=== PATIENT | female | born 1955 | race Caucasian/White ===

== ENCOUNTER 2019-06-24 19:45 | Emergency (ER) | payer MEDICARE, BC ==
[~2019-06-24] VITALS: Ht 170.2 cm; Wt 72.7 kg
--- NOTE | 2019-06-24 20:02 | NUR ---
RELIEVING RN FOR BREAK, PT IS BACK FROM CT Addendum: 06/24/19 at 2010 by JERROD PT IS GOING TO CT
[2019-06-24 20:52] VITALS: BP 156/89
[2019-06-24 21:05] LABS: PARTIAL THROMBOPLASTIN TIME 39 SECONDS (22-32)
== END 2019-06-24 21:19 | disposition home or self-care (01) ==
LOC: ER 19:47
DX: S02.2XXA Fracture of nasal bones, initial encounter for closed fracture (principal); S00.83XA Contusion of other part of head, initial encounter; I48.91 Unspecified atrial fibrillation; R06.02 Shortness of breath; W18.39XA Other fall on same level, initial encounter; Y93.89 Activity, other specified; Y92.89 Other specified places as the place of occurrence of the external cause; Y99.8 Other external cause status
CPT/HCPCS: 36415; 70450; 70486; 72125; 85610; 85730; 93005; 99284

== ENCOUNTER 2023-02-07 14:36 | Outpatient (CLI) | payer MEDICARE, BC ==
[~2023-02-07 14:36] MED LIST: ALLO300T8 PO; APIX5TAB3 PO; CHOL50004 PO; CYAN-34 PO; DOCU100C40 PO; LEVO112T5 PO; LOSA1TAB36 PO; OMEP40CA21 PO; SIMV-45 PO
[2023-02-07 15:39] LABS: BASOPHILS # (AUTO) 0.1 X10'3 (0-0.2); BASOPHILS % (AUTO) 0.9 % (0-1); EOSINOPHILS # (AUTO) 0.2 X10'3 (0-0.9); HEMATOCRIT 37.7 % (35.0-45.0); HEMOGLOBIN 12.7 g/dl (12.0-16.0); LYMPHOCYTES # (AUTO) 2.5 X10'3 (1.1-4.8); LYMPHOCYTES % (AUTO) 32.2 % (21-51); MEAN CORPUSCULAR HEMOGLOBIN 33.7 PG (27.0-31.0); MEAN CORPUSCULAR HGB CONC 33.8 g/dL (33.0-36.5); MEAN CORPUSCULAR VOLUME 99.8 FL (78-98); MEAN PLATELET VOLUME 8.8 FL (7.4-10.4); MONOCYTES # (AUTO) 0.5 X10'3 (0-0.9); MONOCYTES % (AUTO) 6.8 % (2-12); NEUTROPHILS # (AUTO) 4.5 X10'3 (1.8-7.7); NEUTROPHILS % (AUTO) 58.1 % (42-75); PLATELET COUNT 197 X10'3 (140-440); RED BLOOD COUNT 3.78 X10'6 (4.20-5.60); RED CELL DISTRIBUTION WIDTH 14.3 % (11.5-14.5); WHITE BLOOD COUNT 7.7 X10'3 (4.5-11.0)
[2023-02-07 15:46] LABS: PROTHROMBIN TIME 54.6 SECONDS (9.0-12.0)
[2023-02-07 15:58] LABS: INR 5.7 INR
== END 2023-02-07 23:59 | disposition home or self-care (01) ==
LOC: LAB SPEC 14:36
PROVIDERS: ATTEND Physician Assistant Medical
DX: I48.20 Chronic atrial fibrillation, unspecified (principal); R19.00 Intra-abdominal and pelvic swelling, mass and lump, unspecified site; R23.3 Spontaneous ecchymoses
CPT/HCPCS: 36415; 85025; 85610

== ENCOUNTER 2024-11-16 09:51 | Day surgery (SDC) | payer MEDICARE, BC ==
[2024-11-12 11:06] LABS: BASOPHILS # (AUTO) 0.1 X10'3 (0-0.2); BASOPHILS % (AUTO) 1.1 % (0-1); EOSINOPHILS # (AUTO) 0.1 X10'3 (0-0.9); HEMATOCRIT 36.3 % (35.0-45.0); HEMOGLOBIN 12.2 g/dl (12.0-16.0); LYMPHOCYTES # (AUTO) 2.7 X10'3 (1.1-4.8); LYMPHOCYTES % (AUTO) 39.9 % (21-51); MEAN CORPUSCULAR HEMOGLOBIN 33.1 PG (27.0-31.0); MEAN CORPUSCULAR HGB CONC 33.6 g/dL (33.0-36.5); MEAN CORPUSCULAR VOLUME 98.8 FL (78-98); MEAN PLATELET VOLUME 8.8 FL (7.4-10.4); MONOCYTES # (AUTO) 0.5 X10'3 (0-0.9); MONOCYTES % (AUTO) 7.8 % (2-12); NEUTROPHILS # (AUTO) 3.3 X10'3 (1.8-7.7); NEUTROPHILS % (AUTO) 49.2 % (42-75); PLATELET COUNT 232 X10'3 (140-440); RED BLOOD COUNT 3.68 X10'6 (4.20-5.60); RED CELL DISTRIBUTION WIDTH 13.2 % (11.5-14.5); WHITE BLOOD COUNT 6.7 X10'3 (4.5-11.0)
[2024-11-12 11:19] LABS: APTT 40 SECONDS (22-32); PROTHROMBIN TIME 27.4 SECONDS (9.0-12.0)
[2024-11-12 11:22] LABS: ALBUMIN 3.9 G/DL (3.4-5.0); ANION GAP 7 (8-16); BLOOD UREA NITROGEN 13 MG/DL (7-18); BUN/CREATININE RATIO 13.1 (10.0-20.0); CHLORIDE 106 MMOL/L (99-107); CHOL/HDL RATIO 3.3 (0.00-4.99); CHOLESTEROL 175 MG/DL (0-200); CREATININE 0.99 MG/DL (0.40-0.90); GLUCOSE 108 MG/DL (70-104); HDL CHOLESTEROL 53 MG/DL (35-60); LDL CHOLESTEROL 95 MG/DL (50-100); POTASSIUM 4.5 MMOL/L (3.5-5.1); SODIUM 140 MMOL/L (135-145); TOTAL CARBON DIOXIDE 27.5 MMOL/L (24-32); TRIGLYCERIDES 199 MG/DL (20-135); eGFR 55 ML/MIN
[~2024-11-16] VITALS: Ht 167.6 cm; Wt 78.2 kg
[2024-11-16] VITALS (7 sets, daily range): BP systolic 103–118; BP diastolic 64–76; PULSE 54–65; RESP 12–16; TEMP 98.2; O2SAT 95–100
--- NOTE | 2024-11-16 10:26 | ELECTROCARDIOGRAPH REPORT ---
[facility] Test Date: 2024-11-16 Test Time: 10:18:43 Pat Name: MAURY GURROLA Department: PRE/OP CARDIOLOGY [id number] Room: Gender: F [employer]: DENISE : 1955 Requested By: DISHA KABA Order Number: [id number] Reading MD: Dr. ANTHONY Salomon Measurements Intervals [place] Rate: 58 P: 0 HI: 0 QRS: 84 QRSD: 98 T: -83 QT: 425 QTc: 418 Interpretive Statements Atrial fibrillation Borderline right axis deviation Abnormal R-wave progression, early transition Abnormal T, consider ischemia, diffuse leads Electronically Signed On 11-16-2024 17:36:[address] ANTHONY Salomon Please click the below link to view image of tracing.
[2024-11-16] MEDS ORDERED: PANT40TA54 PO (11:46)
[2024-11-16] MEDS ORDERED: METO-395 PO (11:46)
[2024-11-16] MEDS ORDERED: B12 (11:46)
[2024-11-16] MEDS ORDERED: WARF2.5T82 PO ×2 (11:46)
[2024-11-16] MEDS ORDERED: FENO160T PO (11:46)
[2024-11-16] MEDS ORDERED: FURO20TA4 PO (11:46)
[2024-11-16] MEDS ORDERED: POTA-207 PO (11:46)
[2024-11-16] MEDS ORDERED: SPIR25TA5 PO (11:46)
[2024-11-16] MEDS ORDERED: LOSA50TA64 PO (11:46)
[2024-11-16] MEDS: normal saline 1,000 ML IV SCH (12:17)
[2024-11-16] MEDS: LORazepam 0.5 MG tablet PO PRN (12:17)
[2024-11-16] MEDS: diphenhydrAMINE 25mg capsule PO PRN (12:17)
[2024-11-16] MEDS ORDERED: LIDOcaine 1% (10mg/ml) 2ml vial ONE (12:55)
[2024-11-16] MEDS ORDERED: midazolam 1 mg/ML 2ml injection ONE (12:56)
[2024-11-16] MEDS ORDERED: fentaNYL/PF 50MCG/1 ML 2ML syringe ONE (12:56)
[2024-11-16] MEDS ORDERED: iohexol 350MG/ML 100ml bottle IV ONE (12:56)
--- NOTE | 2024-11-20 15:19 | CARDIOLOGY REPORT ---
DATE OF SERVICE: 11/16/2024 DICTATING PHYSICIAN: Peg Atwood MD CARDIAC CATHETERIZATION REPORT DATE OF STUDY: 11/16/2024 PROCEDURE: Right heart catheterization INDICATION: Pulmonary hypertension. PHYSICIAN: Tray Atwood MD DESCRIPTION OF PROCEDURE: After informed consent was obtained, the patient was brought to the lab where she was prepped and draped in the usual sterile fashion. A 6-Irish sheath was inserted into the right brachial vein. Thereafter, a 5-Irish [place]Tanisha catheter was floated under fluoroscopy guidance into the outflow tract and into a wedge position where pulmonary capillary wedge pressure, right-sided pressures and cardiac outputs were obtained. Following the procedure, hemostasis was obtained using manual pressure. HEMODYNAMICS: For the patient's hemodynamics, please refer to the event log. The pulmonary capillary wedge pressure was 3/7 with a mean of 3 mmHg. Pulmonary arterial pressure was 29/3 with a mean of 15 mmHg. Right ventricular pressure was 29/0. Right atrial pressure was 6/8 with a mean of 6 mmHg. Cardiac output was 4.93 L/min. IMPRESSION: * Normal right-sided pressures with a mean pulmonary capillary wedge pressure of 3 mmHg and a mean pulmonary arterial pressure of 15 mmHg. * Pulmonary vascular resistance is calculated to be 2.4 Wood units. Peg Atwood MD TID: [id number] RECEIPT: [id number] SONAM/BRANDO
== END 2024-11-16 15:00 | disposition home or self-care (01) ==
LOC: SSTAY O 09:51
PROVIDERS: ATTEND Student in an Organized Health Care Education/Training Program
DX: I27.20 Pulmonary hypertension, unspecified (principal); E78.5 Hyperlipidemia, unspecified; I48.91 Unspecified atrial fibrillation; I50.9 Heart failure, unspecified; K21.9 Gastro-esophageal reflux disease without esophagitis; M10.9 Gout, unspecified; Z79.01 Long term (current) use of anticoagulants; Z79.899 Other long term (current) drug therapy; Z88.8 Allergy status to other drugs, medicaments and biological substances
CPT/HCPCS: 36415; 80048; 80061; 83695; 85025; 85610; 85730; 93005; 93451; 99152; C1751; C1769; J1644; J2003; J2250; J3010; J7030; Q0163; Z7610; 99153; Q9967